=== PATIENT | female | born 1995 | race Hispanic/Latino ===

== ENCOUNTER 2018-12-10 10:13 | Observation (INO) | payer OTHER ==
[~2018-12-10] VITALS: Ht 162.6 cm; Wt 104.3 kg
[2018-12-10] MEDS ORDERED: ONDANSETRON HCL INJ 2MG/ML 2ML 2 MG/ML VIAL IV STA (10:46)
[2018-12-10] MEDS ORDERED: KETOROLAC TROMETHAMINE 30 MG/ML VIAL IV STA (10:46)
[2018-12-10] MEDS ORDERED: LACTATED RINGER'S 1,000 ML IV ONE (11:00)
--- NOTE | 2018-12-10 11:58 | Diagnostic Imaging Report ---
ADDENDUM #1 Addendum impression: ER physician notified at 12:02 PM. Signed by: Dr. Javier Fontenot M.D. on 12/10/2018 12:02 PM ORIGINAL REPORT EXAMINATION: CT of the abdomen and pelvis without contrast. TECHNIQUE: Helical CT images of the abdomen and pelvis were performed from the lung bases to the lesser trochanters. No intravenous contrast was given per renal stone protocol. Coronal and sagittal reformatted images were obtained.Dose modulation, iterative reconstruction, and/or weight based adjustment of the mA/kV was utilized to reduce the radiation dose to as low as reasonably achievable. COMPARISON: None. CLINICAL HISTORY:Abdominal pain DISCUSSION: ABSENCE OF INTRAVENOUS CONTRAST DECREASES SENSITIVITY FOR DETECTION OF FOCAL LESIONS AND VASCULAR PATHOLOGY. ABDOMEN/PELVIS: LOWER THORAX: Unremarkable. HEPATOBILIARY:No focal hepatic lesions. No biliary ductal dilation. The gallbladder is normal. SPLEEN: No splenomegaly. PANCREAS: No focal masses or ductal dilatation. ADRENALS: No adrenal nodules. KIDNEYS/URETERS: No hydronephrosis, stones, or solid mass lesions. PELVIC ORGANS/BLADDER: The bladder is normal. PERITONEUM/RETROPERITONEUM: No free air or fluid. LYMPH NODES: No intra-abdominal,retroperitoneal, pelvic or inguinal lymphadenopathy. VESSELS: The celiac trunk,superior and inferior mesenteric and bilateral renal arteries are patent The portal, superior mesenteric and splenic veins are patent. GI TRACT: Mildly dilated appendix, 9 mm, visualized in the right lower quadrant with adjacent stranding. BONES AND SOFT TISSUES: No bony destructive lesions. No soft tissue abnormalities. IMPRESSION: Acute appendicitis, nonruptured. Signed by: Dr. Javier Fontenot M.D. on 12/10/2018 11:54 AM
[2018-12-10] MEDS ORDERED: PIPER-TAZ 3.375 GM 50 ML IV ONE (12:15)
[2018-12-10 12:48] LABS: ALANINE AMINOTRANSFERASE 37 IU/L (0-55); ALBUMIN 3.5 g/dL (3.5-5.0); ALBUMIN/GLOBULIN RATIO 0.9 (0.8-2.0); ALKALINE PHOSPHATASE 83 IU/L (40-150); ANION GAP 12.6 mmol/L (8-16); BLOOD UREA NITROGEN 8 mg/dL (7-26); BUN/CREATININE RATIO 12 (6-25); CALCIUM 9.5 mg/dL (8.4-10.2); CARBON DIOXIDE 21 mmol/L (22-29); CHLORIDE 103 mmol/L (98-107); CREATININE, SERUM 0.68 mg/dL (0.57-1.11); EST GLOMERULAR FILTRATION RATE > 60 ML/MIN (60-); GLUCOSE 95 mg/dL (74-118); POTASSIUM 3.6 mmol/L (3.5-5.1); SODIUM 133 mmol/L (136-145)
[2018-12-10] MEDS ORDERED: ONDANSETRON HCL INJ 2MG/ML 2ML 2 MG/ML VIAL IV PRN (14:15)
[2018-12-10] MEDS ORDERED: MORPHINE SULFATE 2 MG/ML SYR 1ML IV PRN (14:15)
--- OUTSIDE RECORDS SUMMARY | 2018-12-10 14:24 | XMS REPORT ---
Author Author [facility] Address Unknown Phone Unavailable Care Team Providers Care New Business Clerk Name Role Phone Bigg CHEEMA Unavailable Unavailable Problems This patient has no known problems. Allergies, Adverse Reactions, Alerts This patient has no known allergies or adverse reactions. Medications This patient has no known medications. Results Test Description Test Time Test Comments Text Results Atomic Results Result Comments CT ABD/PEL WO CONTRAST-HOPD 2018-12-10 11:51:00 [place] [address] Patient Name: CASSIE DUBOIS MR #: [id number] : 1995 Age/Sex: 23/F Req #: [id number] Adm Physician: Ordered by: HUMPHREY CHEEMA MD Report #: [id number] Location: [facility] Room/Bed: Procedure: [id number] HOPD/CT ABD/PEL WO CONTRAST-HOPD Exam Date: 12/10/18 Exam Time: 1100 REPORT STATUS: Signed ADDENDUM #1 Addendum impression: ER physician notified at 12:02 PM. Signed by: Dr. Yudi Morales M.D. on 12/10/2018 12:02 PM ORIGINAL REPORT EXAMINATION: CT of the abdomen and pelvis without contrast. TECHNIQUE: Helical CT images of the abdomen and pelvis were performed from the lung bases to the lesser trochanters. No intravenous contrast was given per renal stone protocol. Coronal and sagittal reformatted images were obtained.Dose modulation, iterative reconstruction, and/or weight based adjustment of the mA/kV was utilized to reduce the radiation dose to as low as reasonably achievable. COMPARISON: None. CLINICAL HISTORY:Abdominal pain DISCUSSION: ABSENCE OF INTRAVENOUS CONTRAST DECREASES SENSITIVITY FOR DETECTION OF FOCAL LESIONS AND VASCULAR PATHOLOGY. ABDOMEN/PELVIS: LOWER THORAX: Unremarkable. HEPATOBILIARY:No focal hepatic lesions. No biliary ductal dilation. The gallbladder is normal. SPLEEN: No sple nomegaly. PANCREAS: No focal masses or ductal dilatation. ADRENALS: No adrenal nodules. KIDNEYS/URETERS: No hydronephrosis, stones, or solid mass lesions. PELVIC ORGANS/BLADDER: The bladder is normal. PERITONEUM/RETROPERITONEUM: No free air or fluid. LYMPH NODES: No intra- abdominal,retroperitoneal, pelvic or inguinal lymphadenopathy. VESSELS: The celiac trunk,superior and inferior mesenteric and bilateral renal arteries are patent The portal, superior mesenteric and splenic veins are patent. GI TRACT: Mildly dilated appendix, 9 mm, visualized in the right lower quadrant with adjacent stranding. BONES AND SOFT TISSUES: No bony destructive lesions. No soft tissue abnormalities. IMPRESSION: Acute appendicitis, nonruptured. Signed by: Dr. Yudi Morales M.D. on 12/10/2018 11:54 AM Dictated By: YUDI MORALES MD [id number] Transcribed By: MYAH on 12/10/18 115 COPY TO: HUMPHREY CHEEMA MD
--- NOTE | 2018-12-10 14:28 | NUR ---
[facility] CALLED ETA 30MIN
--- NOTE | 2018-12-10 14:45 | NUR ---
EMS arrived at this time.
[2018-12-10] MEDS: SODIUM CHLORIDE 0.9% 1000ML 1,000 ML IV SCH ×2 (14:48→20:58)
[2018-12-10 15:43] VITALS: BP 130/74
[2018-12-10] MEDS ORDERED: MORPHINE SULFATE INJ 4 MG/ML INJ 1ML IV PRN (15:45)
[2018-12-10] MEDS ORDERED: BUPIVACAINE 0.5%/EPI 30 ML SDV INJ ONE (16:16)
--- NOTE | 2018-12-10 16:30 | NUR ---
PT OFF UNIT FOR PROCEDURE.
--- NOTE | 2018-12-10 16:52 | Consultation ---
DATE OF CONSULTATION: December 10, 2018 CHIEF COMPLAINT: Abdominal pain. HISTORY OF PRESENT ILLNESS: The patient is a 23-year-old female with a 1-day history of pain in the right lower quadrant with nausea. No vomiting. No diarrhea or fevers. PAST MEDICAL HISTORY: Positive for hypothyroidism and polycystic ovarian syndrome. ALLERGIES: THE PATIENT IS ALLERGIC TO METFORMIN. SURGERY HISTORY: Negative. SOCIAL HABITS: No history of smoking or alcohol abuse. REVIEW OF SYSTEMS: Unremarkable. PHYSICAL EXAMINATION: VITALS: Stable. Afebrile. GENERAL: Awake, alert, in mild discomfort. HEENT: Sclerae are nonicteric. NECK: Supple. LUNGS: Clear. HEART: Regular rate and rhythm. ABDOMEN: Soft. There is guarding tenderness in the right lower quadrant. No rebound. EXTREMITIES: Without cyanosis or edema. LABS: Creatinine is 0.6. CT scan showed acute appendicitis. ASSESSMENT: Acute appendicitis. PLAN: Laparoscopic appendectomy. Attendant risks have been discussed with the patient. Job#: [id number]
[2018-12-10 18:08] VITALS: BP 130/74
--- NOTE | 2018-12-10 18:30 | NUR ---
PT BACK TO UNIT VIA BED WITH 1 ASSIST. A&O X4, C/O OF PAIN/DISCOMFORT TO UMBILICUS. 3 TROCHAR SITES NOTED TO ABD. IV TO R FOREARM PATENT, INTACT NO SWELLING OR REDNESS TO INSERTION SITE.
[2018-12-10] MEDS ORDERED: NEOSTIGMINE 5 MG/5ML SYR ONE (18:53)
[2018-12-10] MEDS ORDERED: ONDANSETRON HCL INJ 2MG/ML 2ML 2 MG/ML VIAL ONE (18:53)
[2018-12-10] MEDS ORDERED: ROCURONIUM BROMIDE 10 MG/ML 5ML VIAL ONE (18:53)
[2018-12-10] MEDS ORDERED: GLYCOPYRROLATE INJ 1MG/ 5 ML SYR ONE (18:53)
[2018-12-10] MEDS ORDERED: DEXAMETHASONE SOD PHOS INJ 4 MG/ML VIAL ONE (18:53)
[2018-12-10] MEDS ORDERED: PROPOFOL IV EMULSION 10 MG/ML 20 ML VIAL ONE (18:53)
[2018-12-10] MEDS ORDERED: LIDOCAINE HCL 2% LOCAL INJ 5 ML SDV VIAL INJ ONE (18:53)
[2018-12-10] MEDS ORDERED: FENTANYL CITRATE/PF 100MCG/2 ML INJ ONE (19:18)
[2018-12-10] MEDS ORDERED: MIDAZOLAM HCL 2 MG/2 ML VIAL ONE (19:18)
[2018-12-10 20:00] VITALS: BP 117/61
--- NOTE | 2018-12-10 21:45 | History and Physical ---
CHIEF COMPLAINT: Lower abdominal pain and appendicitis. HISTORY OF PRESENT ILLNESS: The patient is a 23-year-old woman. She describes the pain in the abdomen that eventually localized to the right lower quadrant. She had some low-grade fevers, but no nausea or vomiting. The patient went to the ER and had a CT scan that showed appendicitis. PAST MEDICAL HISTORY: 1. Thyroid disease. 2. Ovarian cysts. PAST SURGICAL HISTORY: Noncontributory. SOCIAL HISTORY: The patient denies smoking or drinking. REVIEW OF SYSTEMS: The patient is afebrile. There is no headache or neck pain. She has no abdominal pain. She has no chest pain or cough. She has no chest discomfort. She did have some abdominal pain. She has no nausea or vomiting. There is no leg edema. PHYSICAL EXAMINATION: GENERAL: The patient is afebrile. VITAL SIGNS: Stable. HEENT: Shows no facial swelling or erythema. CARDIAC: Reveals regular rate and rhythm with normal S1 and S2. LUNGS: Auscultation of lungs shows decreased breath sounds at the bases. ABDOMEN: The patient does have some poorly localized abdominal discomfort. EXTREMITIES: There is no leg edema or calf tenderness. IMPRESSION: 1. Acute appendicitis. 2. Hypothyroidism. PLAN: 1. Appendectomy. 2. IV antibiotics. 3. Pain control. 4. IV fluids. Jose Maria Block MD [facility]ER[facility] /[id number]
[2018-12-10 22:05] VITALS: BP 117/61
[2018-12-11] VITALS: BP 117/69
--- NOTE | 2018-12-11 01:56 | Operative Report ---
DATE OF PROCEDURE: 12/10/2018 SURGEON: Vishal Granger MD PREOPERATIVE DIAGNOSIS: Acute appendicitis. POSTOPERATIVE DIAGNOSIS: Acute appendicitis. OPERATIVE PROCEDURE: Laparoscopic appendectomy. TUTOR: None. ANESTHESIA: General, Dr. Nicole. INDICATION: A 23-year-old female with 1-day history of pain in the right lower quadrant. CT scan showed appendicitis. The patient consented for laparoscopic appendectomy and attendant risks were discussed. PROCEDURE FINDINGS: Acute appendicitis. DESCRIPTION OF PROCEDURE: The patient was brought to the OR, intubated. Abdomen was prepped with alcohol and draped in sterile fashion. Infraumbilical incision was made and a 10 and 12-mm port inserted. Insufflation then began. Under direct vision, all the port sites placed are the right upper quadrant and right lower quadrant. The appendix was mobilized into the operative field. It was noted to be grossly inflamed, but nonperforated. Next, the appendix was exposed by taking the mesoappendix closely towards the cecum using the LigaSure instrument. Next, the appendix was then ligated with an 0 PDS Endoloop ties. The appendix was then amputated distal to the tie and the mucosa of the appendiceal stump was cauterized. The appendix was placed in an Endopouch and we norberto out of the peritoneal cavity. Operative field was irrigated. Hemostasis was achieved. All ports were removed under direct vision. Fascia closed with 0 Vicryl. Skin then closed with subcuticular stitch. The patient was extubated and transported to the recovery room. Estimated blood loss 5 mL. Vishal Granger MD [facility] /[id number]
[2018-12-11 04:00] VITALS: BP 110/66
[2018-12-11] MEDS: SODIUM CHLORIDE 0.9% 1000ML 1,000 ML IV SCH (04:03)
[2018-12-11 07:39] VITALS: BP 134/72
[2018-12-11 08:35] VITALS: BP 134/72
--- NOTE | 2018-12-12 07:12 | Discharge Summary ---
DISCHARGE DIAGNOSIS: Acute appendicitis. PROCEDURE: Laparoscopic cholecystectomy. CONSULTING PHYSICIAN: Vishal Granger M.D. HISTORY OF PRESENT ILLNESS: The patient is a 23-year-old woman. She has a history of ovarian cysts and thyroid disease. She came in with worsening lower abdominal pain over 24 hours as well as low-grade fevers. A CT scan showed appendicitis. HOSPITAL COURSE: The patient was admitted. She was seen in consultation by Surgery. She had a laparoscopic cholecystectomy and did well. The following day, she was pain free and was ambulating without difficulty. She was moving some gas from her intestines. She was eager to go home. DISPOSITION: Discharged home and follow up with Dr. Granger in 1-2 weeks. Jose Maria Block MD [facility]/MOD[facility] /[id number]
== END 2018-12-11 09:58 | disposition home or self-care (01) ==
LOC: FSED 10:13 → ERHOLD 14:14 → IMCU 15:16
PROVIDERS: ADMIT Internal Medicine Critical Care Medicine; ATTEND Internal Medicine Critical Care Medicine
DX: K35.30 Acute appendicitis with localized peritonitis, without perforation or gangrene (principal); Z88.8 Allergy status to other drugs, medicaments and biological substances; E03.8 Other specified hypothyroidism; E28.2 Polycystic ovarian syndrome; E66.01 Morbid (severe) obesity due to excess calories; Z68.39 Body mass index [BMI] 39.0-39.9, adult
CPT/HCPCS: 36415; 44970; 74176; 80053; 81003; 81025; 85025; 88304; 99284; G0378 ×2; J1100; J1885; J2001; J2250; J2270; J2405; J2543; J2704; J3490; J7030 ×2; J7121